=== PATIENT | female | born 1975 | race Caucasian/White ===

== ENCOUNTER → 2018-10-18 | Outpatient (CLI) | payer OTHER ==
--- NOTE | 2018-10-18 16:29 | Diagnostic Imaging Report ---
EXAM: Renal Ultrasound INDICATION: Family history of renal stones. COMPARISON: None TECHNIQUE: Transverse and longitudinal images of the kidneys and bladder were obtained. FINDINGS: Right Kidney: Length: Measures 9.9 x 4.2 x 3.9 cm Appearance: Normal echogenicity. Collecting system: No hydronephrosis Stones: There is a 3 mm calcification in the lower pole with associated twinkle artifact. Cyst/Mass: None Left Kidney: Length: Measures 10.1 x 6.0 x 4.6 cm Appearance: Normal echogenicity. Collecting system: No hydronephrosis Stones: There is a 7 mm left upper pole renal calcification and a 5 mm left lower pole renal calcification with associated twinkle artifact. Cyst/Mass: None Bladder: Unremarkable in appearance. Bilateral ureteral jets are noted. IMPRESSION: Bilateral nonobstructing renal stones, measuring up to 7 mm in the left upper pole. No evidence of hydronephrosis. Signed by: Dr. Chel Hogan MD on 10/18/2018 4:25 PM
--- NOTE | 2018-10-18 16:49 | Diagnostic Imaging Report ---
Exam: KUB - 2 views. Clinical History: Family history of renal stone. Comparison: Renal ultrasound 10/18/18. Findings: Multiple calcifications project over the bilateral kidneys, measuring up to 6 mm in the right mid pole and 7 mm in the left upper pole. No evidence of calcification overlying the expected location of the bilateral ureters. There are right pelvic phleboliths. Nonobstructive bowel gas pattern. No acute osseous abnormality. Impression: Multiple bilateral renal stones, measuring up to 6 mm on the right and 7 mm on the left. Signed by: Dr. Chel Hogan MD on 10/18/2018 4:46 PM
== END ==
LOC: US 15:03
PROVIDERS: ATTEND Urology
DX: N20.0 Calculus of kidney (principal); I87.8 Other specified disorders of veins
CPT/HCPCS: 74018; 76770

== ENCOUNTER 2019-07-14 04:52 | Observation (INO) | payer OTHER ==
[~2019-07-14] VITALS: Ht 157.5 cm; Wt 64.5 kg
[2019-07-14] MEDS ORDERED: HYDROMORPHONE 1MG/1ML INJ IV STA (05:19)
[2019-07-14] MEDS ORDERED: ONDANSETRON HCL INJ 2MG/ML 2ML 2 MG/ML VIAL IV STA (05:19)
[2019-07-14 05:38] LABS: BASOPHILS # (AUTO) 0.1 (0.0-0.1); BASOPHILS % 0.4 % (0.0-1.0); EOSINOPHILS # (AUTO) 0.1 (0.0-0.4); EOSINOPHILS % 0.5 % (0.0-6.0); HEMATOCRIT 38.9 % (34.2-44.1); HEMOGLOBIN 12.6 g/dL (12.0-16.0); LYMPHOCYTES # (AUTO) 1.8 (1.0-3.2); LYMPHOCYTES % 11.1 % (18.0-39.1); MEAN CORPUSCULAR HEMOGLOBIN 31.3 pg (28-32); MEAN CORPUSCULAR HGB CONC 32.4 g/dL (31-35); MEAN CORPUSCULAR VOLUME 96.5 fL (81-99); MONOCYTES # (AUTO) 1.2 (0.2-0.8); MONOCYTES % 7.6 % (4.4-11.3); NEUTROPHILS # (AUTO) 12.8 (2.1-6.9); NEUTROPHILS % 79.9 % (38.7-80.0); PLATELET COUNT 398 x10e3/uL (140-360); RED BLOOD COUNT 4.03 x10e6/uL (3.6-5.1); RED CELL DISTRIBUTION WIDTH 12.6 % (11.7-14.4)
[2019-07-14 05:39] LABS: BILIRUBIN,URINE NEGATIVE (NEGATIVE); CLARITY,URINE SL CLOUDY (CLEAR); COLOR,URINE YELLOW (YELLOW); KETONES,URINE NEGATIVE (NEGATIVE); LEUKOCYTE ESTERASE ,URINE SMALL (NEGATIVE); NITRITE,URINE NEGATIVE (NEGATIVE); PROTEIN,URINE DIPSTICK TRACE (NEGATIVE); URINE UROBILINOGEN 0.2 mg/dL (0.2 - 1)
[2019-07-14 05:59] LABS: ANION GAP 13.9 mmol/L (8-16); BLOOD UREA NITROGEN 13 mg/dL (7-26); BUN/CREATININE RATIO 17 (6-25); CALCIUM 9.5 mg/dL (8.4-10.2); CARBON DIOXIDE 27 mmol/L (22-29); CHLORIDE 99 mmol/L (98-107); CREATININE, SERUM 0.76 mg/dL (0.57-1.11); EST GLOMERULAR FILTRATION RATE > 60 ML/MIN (60-); GLUCOSE 115 mg/dL (74-118); POTASSIUM 3.9 mmol/L (3.5-5.1); SODIUM 136 mmol/L (136-145)
[2019-07-14] MEDS ORDERED: ONDANSETRON HCL INJ 2MG/ML 2ML 2 MG/ML VIAL ONE (06:05)
[2019-07-14] MEDS ORDERED: HYDROMORPHONE 1MG/1ML INJ ONE (06:05)
[2019-07-14 06:07] LABS: BACTERIA,URINE MODERATE /HPF; EPITHELIAL CELLS,URINE MODERATE /LPF; RBC,URINE 21-50 /HPF (0-5)
--- NOTE | 2019-07-14 06:52 | NUR ---
No T Sheet available for admission due to the system being down - per Dr. Cervantes
--- NOTE | 2019-07-14 06:53 | Diagnostic Imaging Report ---
EXAM: CT Abdomen and Pelvis WITHOUT contrast INDICATION: Lower back pain history of stones COMPARISON: Abdominal radiograph 10/18/2018. TECHNIQUE: Abdomen and pelvis were scanned utilizing a multidetector helical scanner from the lung base to the pubic symphysis without administration of IV contrast. Absence of intravenous contrast decreases sensitivity for detection of focal lesions and vascular pathology. Coronal and sagittal reformations were obtained. Routine protocol was performed. IV CONTRAST: None ORAL CONTRAST: None COMPLICATIONS: None RADIATION DOSE: Total DLP: 263 mGy*cm Estimated effective dose: (DLP x 0.015 x size factor) mSv CTDIvol has been reviewed. It is below the limits set by the Radiation Protocol Committee (RPC). Dose modulation, iterative reconstruction, and/or weight based adjustment of the mA/kV was utilized to reduce the radiation dose to as low as reasonably achievable. FINDINGS: LINES and TUBES: None. LOWER THORAX: Unremarkable HEPATOBILIARY: No focal hepatic lesions. No biliary ductal dilation. GALLBLADDER: Suspect cholelithiasis. No wall thickening. SPLEEN: No splenomegaly. PANCREAS: No focal masses or ductal dilatation. ADRENALS: No adrenal nodules KIDNEYS/URETERS: There are 2 calculi in the distal ureter causes moderate upstream right hydroureteronephrosis. The stones or elongated and measure up to 8 mm in length, but only 3 mm in width. Mild right perinephric stranding. Multiple additional nonobstructive bilateral subcentimeter/punctate calculi. No cystic or solid mass lesions. GI TRACT: No abnormal distention, wall thickening, or evidence of bowel obstruction. Appendix is normal. PELVIC ORGANS/BLADDER: Unremarkable. LYMPH NODES: No lymphadenopathy. VESSELS: There is mild atherosclerotic disease in the aorta and major arterial branches. PERITONEUM / RETROPERITONEUM: No free air or fluid. BONES: Unremarkable. SOFT TISSUES: Unremarkable. IMPRESSION: 1. There are 2 calculi in the distal ureter causes moderate upstream right hydroureteronephrosis. The stones or elongated and measure up to 8 mm in length, but only 3 mm in width. 2. Suspect cholelithiasis. No cholecystitis. Signed by: Silvano Ko DO on 07/14/2019 6:44 AM
[2019-07-14] MEDS ORDERED: HYDROMORPHONE 1MG/1ML INJ IV PRN (07:00)
[2019-07-14] MEDS ORDERED: ONDANSETRON HCL INJ 2MG/ML 2ML 2 MG/ML VIAL IV PRN (07:00)
[2019-07-14] MEDS ORDERED: CEFTRIAXONE SOD 1 GM/NS 50 ML 50 ML IV SCH (07:00)
--- OUTSIDE RECORDS SUMMARY | 2019-07-14 07:33 | XMS REPORT ---
Author Author [facility] Address Unknown Phone Unavailable Care Team Providers Care Financial Investment Adviser Name Role Phone Edgar BARROS Unavailable Unavailable HAMPEL, MILLICENT Unavailable Unavailable Payers Payer Name Policy Type Policy Number Effective Date Expiration Date Problems This patient has no known problems. Allergies, Adverse Reactions, Alerts Allergy Name Allergy Type Status Severity Reaction(s) Onset Date Inactive Date Treating Clinician Comments Penicillins DA Active SV 2010-07-23 00:00:00 Medications This patient has no known medications. Results Test Description Test Time Test Comments Text Results Atomic Results Result Comments CT ABDOMEN/PELVIS WO 2019-07-14 06:35:00 [place] [address] Patient Name: ADAM AUGUSTIN MR #: [id number] : 1975 Age/Sex: 44/F Req #: [id number] Adm Physician: Ordered by: DONNY BARROS MD Report #: [id number] Location: ER Room/Bed: Procedure: [id number] CT/CT ABDOMEN/PELVIS WO Exam Date: Exam Time: REPORT STATUS: Signed EXAM: CT Abdomen and Pelvis WITHOUT contrast INDICATION: Lower back pain history of stones COMPARISON: Abdominal radiograph 10/18/2018. TECHNIQUE: Abdomen and pelvis were scanned utilizing a multidetector helical scanner from the lung base to the pubic symphysis without administration of IV contrast. Absence of intravenous contrast decreases sensitivity for detection of focal lesions and vascular pathology. Coronal and sagittal reformations were obtained. Routine protocol was performed. IV CONTRAST: None ORAL CONTRAST: None COMPLICATIONS: None RADIATION DOSE: Total DLP: 263 mGy*cm Estimated effective dose: (DLP x 0.015 x size factor) mSv CTDIvol has been reviewed. It is below the limits set by the Radiation Protocol Committee (RPC). Dose modulation, iterative reconstruction, and/or weight based adjustment of the mA/kV was utilized to reduce the radiation dose to as low as reasonably achievable. FINDINGS: LINES and TUBES: None. LOWER THORAX: Unremarkable HEPATOBILIARY: No focal hepatic lesions. No biliary ductal dilation. GALLBLADDER: Suspect cholelithiasis. No wall thickening. SPLEEN: No splenomegaly. PANCREAS: No focal masses or ductal dilatation. ADRENALS: No adrenal nodules KIDNEYS/URETERS: There are 2 calculi in the distal ureter causes moderate upstream right hydroureteronephrosis. The stones or elongated and measure up to 8 mm in length, but only 3 mm in width. Mild right perinephric stranding. Multiple additional nonobstructive bilateral subcentimeter/punctate calculi. No cystic or solid mass lesions. GI TRACT: No abnormal distention, wall thickening, or evidence of bowel obstruction. Appendix is normal. PELVIC ORGANS/BLADDER: Unremarkable. LYMPH NODES: No lymphadenopathy. VESSELS: There is mild atherosclerotic disease in the aorta and major arterial branches. PERITONEUM / RETROPERITONEUM: No free air or fluid. BONES: Unremarkable. SOFT TISSUES: Unremarkable. IMPRESSION: 1. There are 2 calculi in the distal ureter causes moderate upstream right hydroureteronephrosis. The stones or elongated and measure up to 8 mm in length, but only 3 mm in width. 2. Suspect cholelithiasis. No cholecystitis. Signed by: Silvano Ko DO on 07/14/2019 6:44 AM Dictated By: SILVANO KO DO 3 Transcribed By: ROBERTO on 07/14/19643 COPY TO: DONNY BARROS MD ABDOMEN-1VIEW (KUB) 2018-10-18 16:41:00 [place] [address] Patient Name: ADAM AUGUSTIN MR #: [id number] : 1975 Age/Sex: 43/F Req #: [id number] Adm Physician: Ordered by: MILLICENT FUENTES MD Report #: [id number] Location: Room/Bed: Procedure: [id number] DX/ABDOMEN-1VIEW (KUB) Exam Date: 10/18/18 Exam Time: 1555 REPORT STATUS: Signed Exam: KUB - 2 views. Clinical History: Family history of renal stone. Comparison: Renal ultrasound 10/18/18. Findings: Multiple calcifications project over the bilateral kidneys, measuring up to 6 mm in the right mid pole and 7 mm in the left upper pole. No evidence of calcification overlying the expected location of the bilateral ureters. There are right pelvic phleboliths. Nonobstructive bowel gas pattern. No acute osseous abnormality. Impression: Multiple bilateral renal stones, measuring up to 6 mm on the right and 7 mm on the left. Signed by: Dr. Coco Reed MD on 10/18/2018 4:46 PM Dictated By: COCO Hugo MD [id number] Transcribed By: ROBERTO on 10/18/18 1646 COPY TO: MILLICENT FUENTES MD RENAL RETROPERITONEAL COMP 2018-10-18 16:22:00 [place] [address] Patient Name: ADAM AUGUSTIN MR #: [id number] : 1975 Age/Sex: 43/F Req #: [id number] Adm Physician: Ordered by: MILLICENT FUENTES MD Report #: [id number] Location: Room/Bed: Procedure: [id number] US/US RENAL RETROPERITONEAL COMP Exam Date: 10/18/18 Exam Time: 1537 REPORT STATUS: Signed EXAM: Renal Ultrasound INDICATION: Family hist ory of renal stones. COMPARISON: None TECHNIQUE: Transverse and longitudinal images of the kidneys and bladder were obtained. FINDINGS: Right Kidney: Length: Measures 9.9 x 4.2 x 3.9 cm Appearance: Normal echogenicity. Collecting system: No hydronephrosis Stones: There is a 3 mm calcification in the lower pole with associated twinkle artifact. Cyst/Mass: None Left Kidney: Length: Measures 10.1 x 6.0 x 4.6 cm Appearance: Normal echogenicity. Collecting system: No hydronephrosis Stones: There is a 7 mm left upper pole renal calcification and a 5 mm left lower pole renal calcification with associated twinkle artifact. Cyst/Mass: None Bladder: Unremarkable in appearance. Bilateral ureteral jets are noted. IMPRESSION: Bilateral nonobstructing renal stones, measuring up to 7 mm in the left upper pole. No evidence of hydronephrosis. Signed by: Dr. Coco Reed MD on 10/18/2018 4:25 PM Dictated By: COCO REED MD 2004 Transcribed By: ROBERTO on 10/18/18 1594 COPY TO: MILLICENT FUENTES MD
[2019-07-14 08:13] VITALS: BP 160/96
[2019-07-14 08:50] VITALS: BP 160/96
[2019-07-14] MEDS: SODIUM CHLORIDE 0.9% 1000ML 1,000 ML IV SCH ×3 (08:50→22:52)
[2019-07-14] MEDS ORDERED: AMLODIPINE BESYL5 MG PO (09:00)
[2019-07-14] MEDS ORDERED: ATENOLOL50 MG PO (09:00)
[2019-07-14] MEDS ORDERED: MACROBID 100 M100 MG PO (09:00)
--- NOTE | 2019-07-14 09:27 | NUR ---
patient has PCN allergy . Paged to get clarification on Rocephin.
[2019-07-14] MEDS: GENTAMICIN 80MG/NS 100 ML 100 ML IV SCH ×2 (10:57→21:50)
[2019-07-14] MEDS ORDERED: HYDROCODONE/APAP 5MG-325MG TAB PO PRN (11:15)
[2019-07-14] MEDS ORDERED: AMLODIPINE BESYLATE 10 MG TAB PO ONE (11:30)
[2019-07-14 12:48] VITALS: BP 152/96
[2019-07-14 16:03] VITALS: BP 131/84
--- NOTE | 2019-07-14 19:05 | NUR ---
Report given to oncoming nurse of patient's status. Resting in bed. No s/s of acute distress noted. Side rails upx2, call light within reach, at bedside.
--- NOTE | 2019-07-14 19:09 | NUR ---
WALKING ROUNDS PERFORMED, RECEIVED PT LAYING SEMI FOWLERS IN BED, AAOX3, RR EVEN AND NON-LABORED, ON ROOM AIR. NO S/SX OF DISTRESS NOTED. LEFT PT LAYING SEMI FOWLERS IN BED, BED IN LOW LOCKED POSITION, SIDE RAILS UPX2, CALL LIGHT AND PHONE WITHIN REACH.
[2019-07-14 20:00] VITALS: BP 118/86
[2019-07-14 20:09] VITALS: BP 118/86
[2019-07-14] MEDS ORDERED: ATENOLOL 50 MG TAB PO SCH (21:00)
[2019-07-15] VITALS: BP 115/76
[2019-07-15 04:00] VITALS: BP 122/83
[2019-07-15] MEDS: SODIUM CHLORIDE 0.9% 1000ML 1,000 ML IV SCH (04:10)
[2019-07-15 05:42] LABS: BASOPHILS % 0.3 % (0.0-1.0); EOSINOPHILS # (AUTO) 0.1 (0.0-0.4); EOSINOPHILS % 1.5 % (0.0-6.0); HEMATOCRIT 35.7 % (34.2-44.1); HEMOGLOBIN 11.2 g/dL (12.0-16.0); LYMPHOCYTES # (AUTO) 1.7 (1.0-3.2); LYMPHOCYTES % 19.6 % (18.0-39.1); MEAN CORPUSCULAR HEMOGLOBIN 30.6 pg (28-32); MEAN CORPUSCULAR HGB CONC 31.4 g/dL (31-35); MEAN CORPUSCULAR VOLUME 97.5 fL (81-99); MONOCYTES # (AUTO) 0.9 (0.2-0.8); MONOCYTES % 10.6 % (4.4-11.3); NEUTROPHILS % 67.5 % (38.7-80.0); PLATELET COUNT 319 x10e3/uL (140-360); RED BLOOD COUNT 3.66 x10e6/uL (3.6-5.1); RED CELL DISTRIBUTION WIDTH 12.5 % (11.7-14.4)
--- NOTE | 2019-07-15 05:53 | NUR ---
H&P cc: right flank pain HPI: 44yoF, PCP , developed right flank pain, found to have right ureterolithiasis with hydronephrosis and UTI. Pt had lithotripsy 4 days ago by . PMH: HTN PShx:tubal ligation Allergies; see emr Meds; see MAR SH: ; no cigs ROS: no f/c/s/N/V/D/HICKEY/vision change/dizziness/skin rash/confusion/mood changes v/s revd PE tired appearing anicteric ns1s2 mod bs FLanks no longer tender; skin dry n. affect labs/meds revd A/P: UTI Right ureterolithiasis Right hydroureteronephrosis HTN CHolelithiasis PLAN IV abx IVF f/u cx pepcid/scd Jimbo Mejia MD, PhD.
[2019-07-15 06:09] LABS: ANION GAP 10.6 mmol/L (8-16); BLOOD UREA NITROGEN 6 mg/dL (7-26); BUN/CREATININE RATIO 9 (6-25); CALCIUM 9.1 mg/dL (8.4-10.2); CARBON DIOXIDE 27 mmol/L (22-29); CHLORIDE 106 mmol/L (98-107); CREATININE, SERUM 0.68 mg/dL (0.57-1.11); EST GLOMERULAR FILTRATION RATE > 60 ML/MIN (60-); GLUCOSE 99 mg/dL (74-118); POTASSIUM 4.6 mmol/L (3.5-5.1); SODIUM 139 mmol/L (136-145)
[2019-07-15] MEDS ORDERED: FAMOTIDINE 20 MG TAB PO SCH (07:30)
--- NOTE | 2019-07-15 07:51 | NUR ---
MD FUENTES AND MD CALDERON HAVE CLEARED PT DC WILL SEND PT HOME TODAY
[2019-07-15 08:12] VITALS: BP 130/90
--- NOTE | 2019-07-15 08:19 | NUR ---
IV DC PRESSURE DRESSING APPLIED AND TAPED DC INSTRUCTIONS GIVEN PT VERBALIZED UNDERSTANDING PT IS NOW OFF UNIT TO HOME
--- NOTE | 2019-07-15 16:24 | NUR ---
D/C summary [facility] dx: UTI Right ureterolithiasis Right hydroureteronephrosis Secondary Dx: HTN CHolelithiasis PLAN IV abx IVF f/u cx pepcid/scd Pt passed stones overnight and all right flank pain has resolved; seen by . d/c home d/c home stable d/c>35mins f/u pcp 1 week and 1 week Jimbo Mejia MD, PhD.
[2019-07-15] MEDS ORDERED: AMLODIPINE BESYLATE 5 MG TAB PO SCH (21:00)
== END 2019-07-15 08:16 | disposition home or self-care (01) ==
LOC: ER 04:52 → ERHOLD 06:56 → MED/SURG 08:07
PROVIDERS: ADMIT Internal Medicine; ATTEND Internal Medicine
DX: N13.6 Pyonephrosis (principal); Z88.0 Allergy status to penicillin; I10 Essential (primary) hypertension; K80.20 Calculus of gallbladder without cholecystitis without obstruction
CPT/HCPCS: 36415 ×2; 74176; 80048 ×2; 81001; 85025 ×2; 87086; 88300; 99284; G0378 ×2; J1170; J1580 ×2; J2405; J7030